=== PATIENT | male | born 1960 | race Caucasian/White ===

== ENCOUNTER 2017-03-14 19:30 | Emergency (ER) | payer OTHER ==
[~2017-03-14] VITALS: Ht 154.9 cm; Wt 81.6 kg
[~2017-03-14 19:30] MED LIST: ACIPHEX20 MG PO; ALAVERT10 M1 PO; ALBUTEROL0.09 MG/A2 INH; ASPIRIN325 MG PO; AUGMENTIN 875-875 MG PO; AUGMENTIN 875875 MG PO; BACTRIM DS 8001 TA1 PO; CEFTIN500 MG PO; CHERATUSSIN AC240 ML PO; CLARITIN-D 12HR1 T12 PO; CLARITIN10 MG PO; CYCLOBENZAPRINE10 MG PO; FLONASE 0.05% 121 EA NAS; HYDROCODONE BIT1 T11 PO; IMDUR60 MG PO; KEFLEX500 MG PO; LEVOFLOXACIN500 MG PO; LOPRESSOR25 MG PO; MEDROL DOSEPAK4 MG PO; MOTRIN800 MG PO; NORCO 5-325 TA1 EACH PO; PREDNICOT10 MG PO; PREDNICOT20 MG PO; PREDNISONE10 MG PO; PREDNISONE20 MG PO; PREDNISONE50 MG PO; PRILOSEC20 M1 PO; PROVENTIL0.09 MG/A1 INH; ROBITUSSIN AC 10 MG/ PO; ROBITUSSIN AC 110 ML PO; SIMVASTATIN20 MG PO; SYNTHROID; Synthroid,Levo50 MCG PO; TESSALON PERLE200 MG PO; VENTOLIN H0.09 MG/AC INH; VIBRAMYCIN100 MG PO; VITAMIN D5000 I2 PO; ZITHROMAX Z PA250 MG PO; ZITHROMAX250 MG PO
[2017-03-14 19:42] VITALS: BP 152/92
[2017-03-14 20:12] LABS: BASO # 0.1 10*3/uL (0.0-0.1); BASO % 0.4 % (0.0-1.0); EOS # 0.2 10*3/uL (0.0-0.4); EOS % 1.5 % (1.0-4.0); HEMATOCRIT 40.1 % (42.0-52.0); HEMOGLOBIN 13.5 g/dl (14.0-18.0); IG # 0.1 10*3/uL (0.0-0.1); LYMPH # 3.9 10*3/uL (1.3-4.4); LYMPH % 30.8 % (27.0-41.0); MEAN CELL VOLUME 88.1 fl (80.0-94.0); MEAN CORPUSCULAR HGB 29.7 pg (27.0-31.0); MEAN CORPUSCULAR HGB CONC 33.7 g/dl (33.0-37.0); MONO # 0.6 10*3/uL (0.1-1.0); MONO % 4.9 % (3.0-9.0); NEUT # 7.7 10*3/uL (2.3-7.9); NEUT % 61.8 % (47.0-73.0); PLATELET COUNT AUTOMATED 269 10*3/uL (130-400); RED BLOOD COUNT 4.55 10*6/uL (4.50-5.90); RED CELL DISTRI WIDTH 13.7 % (0-14.5); WHITE BLOOD COUNT 12.5 10*3/uL (4.8-10.8)
[2017-03-14 20:31] LABS: BUN 9 mg/dl (7-24); CARBON DIOXIDE 29 mmol/L (21-32); CHLORIDE 100 mmol/L (98-107); EST GLOM FILT AFRICAN AMERICAN > 60 ml/min; GLUCOSE 118 mg/dL (65-99); POTASSIUM 3.7 mmol/L (3.5-5.1); SODIUM 138 mmol/L (136-145)
[2017-03-14 20:34] LABS: TROPONIN I < 0.015 ng/ml (<0.045)
[2017-03-14] MEDS ORDERED: ROBITUSSIN AC 110 ML PO (21:00)
[2017-03-14] MEDS ORDERED: AUGMENTIN 500500 M1 PO (21:00)
== END 2017-03-14 21:22 | disposition home or self-care (01) ==
LOC: ED 19:30
PROVIDERS: Emergency Medicine Emergency Medical Services
DX: J20.9 Acute bronchitis, unspecified (principal); G89.29 Other chronic pain; M54.5 Low back pain; F17.200 Nicotine dependence, unspecified, uncomplicated; Z98.890 Other specified postprocedural states; Z79.899 Other long term (current) drug therapy; Z79.82 Long term (current) use of aspirin; Z88.4 Allergy status to anesthetic agent

== ENCOUNTER 2017-04-06 18:10 | Emergency (ER) | payer OTHER ==
[~2017-04-06] VITALS: Ht 154.9 cm; Wt 82.6 kg
[~2017-04-06 18:10] MED LIST changes: +AUGMENTIN 500500 M1 PO
[2017-04-06 18:17] VITALS: BP 154/92
[2017-04-06] MEDS ORDERED: ZYRTEC10 MG PO (19:26)
== END 2017-04-06 19:30 | disposition home or self-care (01) ==
LOC: ED 18:10
DX: B30.9 Viral conjunctivitis, unspecified (principal); F17.200 Nicotine dependence, unspecified, uncomplicated; Z88.4 Allergy status to anesthetic agent; Z79.82 Long term (current) use of aspirin; Z79.899 Other long term (current) drug therapy

== ENCOUNTER 2017-04-30 19:22 | Emergency (ER) | payer OTHER ==
[~2017-04-30] VITALS: Ht 154.9 cm; Wt 81.6 kg
[~2017-04-30 19:22] MED LIST changes: +ZYRTEC10 MG PO
[2017-04-30 20:28] LABS: BASO # 0.1 10*3/uL (0.0-0.1); BASO % 0.3 % (0.0-1.0); EOS # 0.1 10*3/uL (0.0-0.4); EOS % 0.5 % (1.0-4.0); HEMATOCRIT 39.7 % (42.0-52.0); HEMOGLOBIN 13.4 g/dl (14.0-18.0); LYMPH # 3.5 10*3/uL (1.3-4.4); LYMPH % 19.9 % (27.0-41.0); MEAN CELL VOLUME 87.8 fl (80.0-94.0); MEAN CORPUSCULAR HGB 29.6 pg (27.0-31.0); MEAN CORPUSCULAR HGB CONC 33.8 g/dl (33.0-37.0); MEAN PLATELET VOLUME 9.1 fl (9.6-12.3); MONO # 0.9 10*3/uL (0.1-1.0); MONO % 4.9 % (3.0-9.0); NEUT % 73.7 % (47.0-73.0); PLATELET COUNT AUTOMATED 308 10*3/uL (130-400); RED BLOOD COUNT 4.52 10*6/uL (4.50-5.90); RED CELL DISTRI WIDTH 14.2 % (0-14.5); WHITE BLOOD COUNT 17.6 10*3/uL (4.8-10.8)
[2017-04-30 20:45] LABS: ALBUMIN 3.7 gm/dl (3.1-4.5); ALKALINE PHOSPHATASE 177 U/L (45-117); BUN 9 mg/dl (7-24); CHLORIDE 102 mmol/L (98-107); CREATININE 0.97 mg/dL (0.70-1.30); POTASSIUM 3.6 mmol/L (3.5-5.1); SGOT/AST 27 IU/L (3-35); SGPT/ALT 38 U/L (12-78); SODIUM 136 mmol/L (136-145); TOTAL PROTEIN 7.7 gm/dL (6.4-8.2)
[2017-04-30 20:48] LABS: TROPONIN I < 0.015 ng/ml (<0.045)
[2017-04-30 21:36] VITALS: BP 160/93
[2017-04-30] MEDS ORDERED: MEDROL DOSEPAK4 MG PO (22:20)
[2017-04-30] MEDS ORDERED: LEVAQUIN750 M1 PO (22:20)
== END 2017-04-30 22:52 | disposition home or self-care (01) ==
LOC: ED 19:22
PROVIDERS: Emergency Medicine
DX: J44.1 Chronic obstructive pulmonary disease with (acute) exacerbation (principal); R10.9 Unspecified abdominal pain; R11.0 Nausea; R19.7 Diarrhea, unspecified; I10 Essential (primary) hypertension; I25.2 Old myocardial infarction; F17.200 Nicotine dependence, unspecified, uncomplicated; Z88.6 Allergy status to analgesic agent; Z79.899 Other long term (current) drug therapy; Z79.82 Long term (current) use of aspirin

== ENCOUNTER 2017-06-23 18:57 | Emergency (ER) | payer OTHER ==
[~2017-06-23] VITALS: Ht 154.9 cm; Wt 81.6 kg
[~2017-06-23 18:57] MED LIST changes: +LEVAQUIN750 M1 PO
[2017-06-23 19:03] VITALS: BP 151/85
[2017-06-23] MEDS ORDERED: VIBRAMYCIN100 MG PO (19:20)
== END 2017-06-23 19:27 | disposition home or self-care (01) ==
LOC: ED 18:57
DX: R09.81 Nasal congestion (principal); R05 Cough; J02.9 Acute pharyngitis, unspecified; Z88.4 Allergy status to anesthetic agent; Z79.82 Long term (current) use of aspirin; Z79.899 Other long term (current) drug therapy

== ENCOUNTER 2017-09-08 15:17 | Inpatient (IN) | payer OTHER ==
[~2017-09-08] VITALS: Ht 155 cm; Wt 79.0 kg
--- NOTE | ~2017-09-08 | WRIGHTHP ---
[place], [place] PATIENT HISTORY AND PHYSICAL EXAM NAME: VERNON VILLALOBOS [facility] #: [id number] UNIT #: [id number] ROOM: 402 DOCTOR: ALBERT GATES MD BIRTHDATE: [birth year] DOS: 09/08/2017 HISTORY OF PRESENT ILLNESS: The patient is 56 years old. 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 So, he decided to come into the Emergency Room. He did not have any abdominal pain, nausea, any emesis. He also had some minimal epigastric pain. When he was evaluated in the ER, he was found to have white cell count which is elevated at 17,000, normal lactic acid with lipase and amylase also being elevated. So, he was admitted with diagnosis of possibility of acute pancreatitis. The patient does not have any abdominal pain this morning. Does not have any chest pains, nausea, emesis, does not have any fever or chills. The patient feels good and he is hungry and wants to have some food. PAST MEDICAL HISTORY: Significant for: 1. Hypertension. 2. Coronary artery disease with history of stent placement with a negative stress test in 2017 as an outpatient. 3. Hypothyroidism. 4. Mixed hyperlipidemia. MEDICATIONS: Pravachol, omeprazole, Imdur, aspirin, levothyroxine and metoprolol. SOCIAL HISTORY: Nonsmoker, does not use any alcohol. PHYSICAL EXAMINATION: GENERAL: He is awake and alert and oriented. VITAL SIGNS: Graphic trend shows a pressure of 150/84, pulse of 70, respirations 20, temperature 97.2. LUNGS: Diminished breath sounds. No wheezes, rales, rhonchi heard. HEART: Regular. ABDOMEN: Obese, soft, nontender. EXTREMITIES: Without any edema. ASSESSMENT AND PLAN: 1. Acute pancreatitis. The patient is clinically improving. Labs are showing some improvement. We will start him on a clear liquid diet this morning and will repeat the labs again in the morning. If it looks good, plan is to discharge him to home. CT of the abdomen does not show any evidence of pancreatic changes. 2. Elevated white cell count of unknown etiology, could be from the pancreatitis. The patient's white cell count is coming down with the fluids. 3. Chest pain, ruled out for myocardial infarction. The patient had a stress test last year, which was negative. [place], [place] PATIENT HISTORY AND PHYSICAL EXAM NAME: VERNON VILLALOBOS UNIT #: [id number] ROOM: [facility] DOCTOR: ALBERT GATES MD BIRTHDATE: [birth year] ALBERT GATES MD CM:HISPHYS:PATIENT HISTORY AND PHYSICAL EXAMINATION ALBERT GATES MD 09/09/17 0955 interface
[2017-09-08] MEDS ORDERED: ASMANEX220 MC1 INH (15:31)
[2017-09-08] MEDS ORDERED: VENTOLIN 02.5 MG/3 M INH (15:31)
[2017-09-08] MEDS ORDERED: VITAMIN D32000 UNIT PO (15:31)
[2017-09-08 15:32] VITALS: BP 142/94
[2017-09-08 15:41] LABS: BASO # 0.1 10*3/uL (0.0-0.1); BASO % 0.3 % (0.0-1.0); EOS # 0.2 10*3/uL (0.0-0.4); EOS % 1.3 % (1.0-4.0); HEMOGLOBIN 13.5 g/dl (14.0-18.0); LYMPH # 2.7 10*3/uL (1.3-4.4); LYMPH % 14.9 % (27.0-41.0); MEAN CELL VOLUME 85.8 fl (80.0-94.0); MEAN CORPUSCULAR HGB CONC 33.8 g/dl (33.0-37.0); MEAN PLATELET VOLUME 9.1 fl (9.6-12.3); MONO # 0.9 10*3/uL (0.1-1.0); MONO % 4.8 % (3.0-9.0); NEUT % 78.3 % (47.0-73.0); PLATELET COUNT AUTOMATED 333 10*3/uL (130-400); RED BLOOD COUNT 4.66 10*6/uL (4.50-5.90); RED CELL DISTRI WIDTH 13.9 % (0-14.5); WHITE BLOOD COUNT 17.9 10*3/uL (4.8-10.8)
[2017-09-08 15:50] LABS: ACT PARTIAL THROMBO TIME 26.7 SECONDS (20.8-31.5); INTERNATIONAL NORM RATIO 0.9 (2.0-3.5)
[2017-09-08 15:57] LABS: ALBUMIN 3.9 gm/dl (3.1-4.5); ALKALINE PHOSPHATASE 189 U/L (45-117); BUN 10 mg/dl (7-24); CHLORIDE 102 mmol/L (98-107); CREATININE 0.88 mg/dL (0.70-1.30); LIPASE 1351 U/L (73-393); POTASSIUM 3.6 mmol/L (3.5-5.1); SGOT/AST 45 IU/L (3-35); SGPT/ALT 75 U/L (12-78); SODIUM 137 mmol/L (136-145); TOTAL PROTEIN 7.6 gm/dL (6.4-8.2); TROPONIN I < 0.015 ng/ml (<0.045)
[2017-09-08] MEDS ORDERED: PRAVACHOL40 MG PO (17:32)
[2017-09-08 17:47] VITALS: BP 142/86
[2017-09-08 20:00] VITALS: BP 124/85
[2017-09-09] VITALS: BP 140/85
[2017-09-09 06:00] LABS: BASO % 0.3 % (0.0-1.0); EOS # 0.2 10*3/uL (0.0-0.4); EOS % 1.9 % (1.0-4.0); HEMATOCRIT 39.6 % (42.0-52.0); HEMOGLOBIN 13.3 g/dl (14.0-18.0); LYMPH # 2.7 10*3/uL (1.3-4.4); LYMPH % 21.4 % (27.0-41.0); MEAN CORPUSCULAR HGB 29.6 pg (27.0-31.0); MEAN CORPUSCULAR HGB CONC 33.6 g/dl (33.0-37.0); MEAN PLATELET VOLUME 9.5 fl (9.6-12.3); MONO # 0.7 10*3/uL (0.1-1.0); MONO % 5.8 % (3.0-9.0); NEUT # 8.7 10*3/uL (2.3-7.9); NEUT % 70.2 % (47.0-73.0); PLATELET COUNT AUTOMATED 301 10*3/uL (130-400); RED CELL DISTRI WIDTH 14.1 % (0-14.5); WHITE BLOOD COUNT 12.4 10*3/uL (4.8-10.8)
[2017-09-09 06:19] LABS: ALBUMIN 3.6 gm/dl (3.1-4.5); BILIRUBIN, DIRECT 0.1 mg/dL (0.0-0.2)
[2017-09-09 06:20] LABS: TOTAL PROTEIN 7.1 gm/dL (6.4-8.2)
[2017-09-09 08:00] VITALS: BP 150/84
[2017-09-09 12:00] VITALS: BP 123/70
[2017-09-09 16:00] VITALS: BP 127/72
== END 2017-09-09 18:22 | disposition left against medical advice (07) | DRG 439 ==
LOC: ED 15:17 → EDHOLD 16:53 → 4E 16:53
PROVIDERS: Emergency Medicine; Internal Medicine
DX: K85.90 Acute pancreatitis without necrosis or infection, unspecified (principal); R65.10 Systemic inflammatory response syndrome (SIRS) of non-infectious origin without acute organ dysfunction; K76.0 Fatty (change of) liver, not elsewhere classified; J45.909 Unspecified asthma, uncomplicated; E66.9 Obesity, unspecified; E03.9 Hypothyroidism, unspecified; I10 Essential (primary) hypertension; E78.2 Mixed hyperlipidemia; K21.9 Gastro-esophageal reflux disease without esophagitis; I25.10 Atherosclerotic heart disease of native coronary artery without angina pectoris; J44.9 Chronic obstructive pulmonary disease, unspecified; E55.9 Vitamin D deficiency, unspecified; Z96.1 Presence of intraocular lens; Z53.21 Procedure and treatment not carried out due to patient leaving prior to being seen by health care provider; M54.32 Sciatica, left side; Z82.49 Family history of ischemic heart disease and other diseases of the circulatory system; Z80.1 Family history of malignant neoplasm of trachea, bronchus and lung; Z79.2 Long term (current) use of antibiotics; Z79.899 Other long term (current) drug therapy; Z87.891 Personal history of nicotine dependence; Z88.4 Allergy status to anesthetic agent; Z95.5 Presence of coronary angioplasty implant and graft; Z98.49 Cataract extraction status, unspecified eye; Z68.32 Body mass index [BMI] 32.0-32.9, adult

== ENCOUNTER 2017-09-17 18:37 | Emergency (ER) | payer OTHER ==
[~2017-09-17] VITALS: Ht 154.9 cm; Wt 78.5 kg
[~2017-09-17 18:37] MED LIST changes: +ASMANEX220 MC1 INH; +PRAVACHOL40 MG PO; +VENTOLIN 02.5 MG/3 M INH; +VITAMIN D32000 UNIT PO
[2017-09-17 18:46] VITALS: BP 156/82
[2017-09-17 19:15] LABS: BASO % 0.4 % (0.0-1.0); EOS # 0.1 10*3/uL (0.0-0.4); EOS % 1.3 % (1.0-4.0); HEMOGLOBIN 13.5 g/dl (14.0-18.0); LYMPH # 1.2 10*3/uL (1.3-4.4); LYMPH % 11.7 % (27.0-41.0); MEAN CORPUSCULAR HGB CONC 33.8 g/dl (33.0-37.0); MONO # 0.7 10*3/uL (0.1-1.0); MONO % 6.5 % (3.0-9.0); NEUT # 8.3 10*3/uL (2.3-7.9); NEUT % 79.8 % (47.0-73.0); PLATELET COUNT AUTOMATED 291 10*3/uL (130-400); RED BLOOD COUNT 4.65 10*6/uL (4.50-5.90); RED CELL DISTRI WIDTH 13.6 % (0-14.5); WHITE BLOOD COUNT 10.3 10*3/uL (4.8-10.8)
[2017-09-17 19:30] LABS: ALBUMIN 4.5 gm/dl (3.1-4.5); ALKALINE PHOSPHATASE 149 U/L (45-117); BUN 7 mg/dl (7-24); CHLORIDE 99 mmol/L (98-107); CREATININE 0.84 mg/dL (0.70-1.30); POTASSIUM 3.7 mmol/L (3.5-5.1); SGOT/AST 25 IU/L (3-35); SGPT/ALT 43 U/L (12-78); SODIUM 137 mmol/L (136-145); TOTAL PROTEIN 8.4 gm/dL (6.4-8.2)
[2017-09-17] MEDS ORDERED: ZITHROMAX250 MG PO (21:06)
[2017-09-17 21:10] LABS: INTERNATIONAL NORM RATIO 0.9 (2.0-3.5)
[2017-09-17 21:12] LABS: TROPONIN I < 0.015 ng/ml (<0.045)
== END 2017-09-17 21:38 | disposition home or self-care (01) ==
LOC: ED 18:37
PROVIDERS: Physician Assistant
DX: J06.9 Acute upper respiratory infection, unspecified (principal); J81.1 Chronic pulmonary edema; R06.00 Dyspnea, unspecified; F10.10 Alcohol abuse, uncomplicated; Z88.8 Allergy status to other drugs, medicaments and biological substances; Z79.899 Other long term (current) drug therapy; Z79.82 Long term (current) use of aspirin

== ENCOUNTER 2017-12-05 17:55 | Emergency (ER) | payer OTHER ==
[~2017-12-05] VITALS: Wt 79.4 kg
[2017-12-05 18:23] LABS: BASO # 0.1 10*3/uL (0.0-0.1); BASO % 0.4 % (0.0-1.0); EOS # 0.1 10*3/uL (0.0-0.4); EOS % 0.6 % (1.0-4.0); HEMATOCRIT 39.5 % (42.0-52.0); LYMPH % 25.2 % (27.0-41.0); MEAN CELL VOLUME 85.7 fl (80.0-94.0); MEAN CORPUSCULAR HGB 28.2 pg (27.0-31.0); MEAN CORPUSCULAR HGB CONC 32.9 g/dl (33.0-37.0); MEAN PLATELET VOLUME 9.2 fl (9.6-12.3); MONO # 0.9 10*3/uL (0.1-1.0); MONO % 5.5 % (3.0-9.0); NEUT # 10.8 10*3/uL (2.3-7.9); NEUT % 67.8 % (47.0-73.0); PLATELET COUNT AUTOMATED 318 10*3/uL (130-400); RED BLOOD COUNT 4.61 10*6/uL (4.50-5.90); RED CELL DISTRI WIDTH 15.7 % (0-14.5)
[2017-12-05 18:26] VITALS: BP 140/80
[2017-12-05 18:38] LABS: BUN 12 mg/dl (7-24); CHLORIDE 102 mmol/L (98-107); CREATININE 0.83 mg/dL (0.70-1.30); POTASSIUM 3.6 mmol/L (3.5-5.1); SODIUM 137 mmol/L (136-145)
[2017-12-05 18:39] LABS: ALBUMIN 3.8 gm/dl (3.1-4.5); ALKALINE PHOSPHATASE 160 U/L (45-117); SGOT/AST 29 IU/L (3-35); SGPT/ALT 74 U/L (12-78); TOTAL PROTEIN 7.4 gm/dL (6.4-8.2)
[2017-12-05] MEDS ORDERED: LOTRISONE CREAM15 GM T (19:01)
[2017-12-05] MEDS ORDERED: FLUCONAZOLE100 MG PO (19:01)
== END 2017-12-05 19:30 | disposition home or self-care (01) ==
LOC: ED 17:55
PROVIDERS: Emergency Medicine
DX: B35.6 Tinea cruris (principal); J44.9 Chronic obstructive pulmonary disease, unspecified; I25.10 Atherosclerotic heart disease of native coronary artery without angina pectoris; K21.9 Gastro-esophageal reflux disease without esophagitis; E03.9 Hypothyroidism, unspecified; E66.9 Obesity, unspecified; I10 Essential (primary) hypertension; G89.29 Other chronic pain; M54.5 Low back pain; Z68.34 Body mass index [BMI] 34.0-34.9, adult; Z95.5 Presence of coronary angioplasty implant and graft; Z87.891 Personal history of nicotine dependence; Z79.82 Long term (current) use of aspirin; Z88.4 Allergy status to anesthetic agent; Z79.899 Other long term (current) drug therapy

== ENCOUNTER 2018-01-13 22:55 | Emergency (ER) | payer OTHER ==
[~2018-01-13] VITALS: Ht 154.9 cm; Wt 81.6 kg
[2018-01-13 22:55] VITALS: BP 149/97
[~2018-01-13 22:55] MED LIST changes: +FLUCONAZOLE100 MG PO; +LOTRISONE CREAM15 GM T
[2018-01-14] MEDS ORDERED: MEDROL DOSEPAK4 MG PO (00:32)
[2018-01-14] MEDS ORDERED: AUGMENTIN 875-875 MG PO (00:32)
== END 2018-01-14 01:03 | disposition home or self-care (01) ==
LOC: ED 22:55
DX: J40 Bronchitis, not specified as acute or chronic (principal); G89.29 Other chronic pain; J44.9 Chronic obstructive pulmonary disease, unspecified; I25.10 Atherosclerotic heart disease of native coronary artery without angina pectoris; I10 Essential (primary) hypertension; K21.9 Gastro-esophageal reflux disease without esophagitis; E03.9 Hypothyroidism, unspecified; E78.2 Mixed hyperlipidemia; E66.9 Obesity, unspecified; Z68.34 Body mass index [BMI] 34.0-34.9, adult; Z95.5 Presence of coronary angioplasty implant and graft; Z87.891 Personal history of nicotine dependence; Z98.890 Other specified postprocedural states; Z79.82 Long term (current) use of aspirin; Z79.899 Other long term (current) drug therapy; Z88.4 Allergy status to anesthetic agent

== ENCOUNTER 2018-01-30 12:55 | Emergency (ER) | payer OTHER ==
[~2018-01-30] VITALS: Ht 154.9 cm; Wt 81.6 kg
[2018-01-30 12:57] VITALS: BP 154/91
[2018-01-30] MEDS ORDERED: PREDNISONE20 M1 PO ×2 (13:21→13:24)
== END 2018-01-30 13:48 | disposition home or self-care (01) ==
LOC: ED 12:55
DX: L25.9 Unspecified contact dermatitis, unspecified cause (principal); Z87.891 Personal history of nicotine dependence; Z95.5 Presence of coronary angioplasty implant and graft; Z79.82 Long term (current) use of aspirin; Z79.899 Other long term (current) drug therapy; Z88.4 Allergy status to anesthetic agent

== ENCOUNTER 2018-02-09 11:15 | Inpatient (IN) | payer OTHER ==
[~2018-02-09] VITALS: Ht 157.4 cm; Wt 82.4 kg
[2018-02-09] VITALS (7 sets, daily range): BP systolic 134–153; BP diastolic 80–86
--- NOTE | ~2018-02-09 | EKG ---
[place], [place] ELECTROCARDIOGRAM REPORT NAME: VERNON VILLALOBOS UNIT #: [id number] ROOM: 415 DOCTOR: YESENIA DRAFT REPORT BIRTHDATE: [address] 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
--- NOTE | ~2018-02-09 | WRIGHTHP ---
[place], [place] PATIENT HISTORY AND PHYSICAL EXAM NAME: VERNON VILLALOBOS [facility] #: [id number] UNIT #: [id number] ROOM: 415 DOCTOR: JASSON LANDIS MD BIRTHDATE: [birth year] DOS: 02/09/2018 HISTORY OF PRESENT ILLNESS: The patient is a 57-year-old gentleman with previous history of: 1. Coronary artery disease of the [place] vessels and stent placements in the past. 2. Gastroesophageal reflux disease and esophagitis. 3. History of asthmatoid wheezing. 4. Hypothyroidism. 5. Benign essential hypertension. 6. Mixed hyperlipidemia. The patient presented to the Emergency Department with several days of complaints of increasing shortness of breath, wheezing, and cough. The patient was recommended for admission for treatment. After admission, the patient being started on corticosteroids, nebulizer treatments and oxygen. The patient is starting to feel better. REVIEW OF SYSTEMS: RESPIRATORY: Increased shortness of breath and wheezing. GASTROINTESTINAL: No nausea, vomiting, diarrhea, constipation. CARDIOVASCULAR: No chest pains or palpitations. FAMILY HISTORY: Noncontributory. SOCIAL HISTORY: Nicotine smoke dependence. Denies any alcohol or drug abuse. FAMILY HISTORY: Noncontributory. HOME MEDICATIONS: DuoNeb, simvastatin, omeprazole. ALLERGIES: Known allergies to NOVOCAIN. PHYSICAL EXAMINATION: GENERAL: Alert, oriented x 3, obese. VITAL SIGNS: Blood pressure 147/86, heart rate 82 beats per minute, breathing 20 times per minute, temperature 98 degrees Fahrenheit. HEENT AND NECK: Extraocular movements are intact. Sclerae are anicteric. Oral mucosa is moist and clean. No obvious facial weakness. Neck is supple without any lymphadenopathy. No thyromegaly. No JVD. No carotid arterial bruits. LUNGS: On lung auscultation, some expiratory wheezing which is scattered. CARDIOVASCULAR SYSTEM: Heart rate is regular in rate and rhythm. S1 and S2 normally audible. No significant murmur or any other abnormal cardiac sounds. ABDOMEN: Soft, nontender. No obvious organomegaly. Bowel sounds are present. No obvious herniation. EXTREMITIES: Without significant cyanosis or edema. Warm to touch. CENTRAL NERVOUS SYSTEM: Alert and oriented x 3. Cranial nerves II-XII are intact. Speech is normal. The patient is able to move all extremities. Normal muscle strength. Deep tendon reflexes are equal on both sides. Plantars were downgoing. [place], [place] PATIENT HISTORY AND PHYSICAL EXAM NAME: VERNON VILLALOBOS [facility] #: [id number] UNIT #: [id number] ROOM: [facility] DOCTOR: JASSON LANDIS MD BIRTHDATE: [birth year] LABORATORY DATA: Chest x-ray without acute abnormality. Normal serum electrolytes. White cell count of 21,000. Lactic acid level was normal. 1. Acute exacerbation of chronic obstructive pulmonary disease with acute bronchitis, wheezing and leukocytosis, to be treated with antibiotics, corticosteroids and oxygen as needed. 2. Coronary artery disease of the [place] vessels without chest pains presently. 3. Mixed hyperlipidemia. The patient continued on treatment. 4. Hypothyroidism, treated with thyroid supplements. 5. Benign essential hypertension, treated and controlled. 6. Gastroesophageal reflux disease and esophagitis, asymptomatic with omeprazole. JASSON LANDIS MD CM:HISPHYS:PATIENT HISTORY AND PHYSICAL EXAMINATION 39 22 JASSON LANDIS MD 02/09/182120 interface
--- NOTE | ~2018-02-09 | DS ---
[place], [place] DISCHARGE SUMMARY NAME: VERNON VILLALOBOS [facility] #: [id number] UNIT #: [id number] ROOM: 415 DOCTOR: JASSON LANDIS MD BIRTHDATE: [birth year] DOS: 02/10/2018 DISCHARGE DIAGNOSES: 1. Acute exacerbation of chronic obstructive pulmonary disease. 2. Corticosteroid-induced leukocytosis. 3. Mixed hyperlipidemia. 4. Hypothyroidism. 5. Benign essential hypertension. 6. Gastroesophageal reflux disease and esophagitis. 7. Mixed hyperlipidemia. 8. History of coronary artery disease of the [place] vessels and stent placements in the past. HOSPITAL COURSE: The patient presented to the Emergency Department with failed outpatient treatment for acute exacerbation of COPD, shortness of breath, wheezing and cough. The patient was admitted and treated with corticosteroids, oxygen, antibiotic, nebulizer treatments and his breathing is improved and he is insisting on going home. The patient has leukocytosis from using corticosteroids as an outpatient and also now given IV Solu-Medrol in the hospital. The patient is completely asymptomatic. He has no diarrhea. Breathing is improved and she was walked in the hallways without oxygen and his pulse ox remained good. The patient will be discharged to home on his tapering down dose of prednisone, which he was already taking at home and he was given Augmentin and bronchodilators and he will be seen in the office next week on Wednesday or Wednesday. 1. Mixed hyperlipidemia, for which the patient is followed on a low fat diet and he takes simvastatin. 2. Hypothyroidism, treated with levothyroxine. 3. Benign essential hypertension, treated and controlled. He remains on metoprolol. 4. Gastroesophageal reflux disease and esophagitis, treated with omeprazole. 5. History of coronary artery disease of the [place] vessels, treated with aspirin and Imdur. The patient is chest pain free. Normal serum electrolytes. Blood sugar elevated to 310 from use of corticosteroids. The patient has corticosteroid-induced hyperglycemia. White cell count elevated to 25,000 from use of corticosteroids. DISCHARGE MANAGEMENT: Augmentin 875 mg twice a day for a week, simvastatin 20 mg daily, Medrol Dosepak, omeprazole 20 mg a day, aspirin 325 mg a day, Imdur 60 mg a day, loratadine 10 mg a day, metoprolol 25 mg b.i.d., levothyroxine 50 mcg daily. FOLLOWUP: Follow up at the office on Wednesday with me. [place], [place] DISCHARGE SUMMARY NAME: VERNON VILLALOBOS UNIT #: [id number] ROOM: 415 DOCTOR: JASSON LANDIS MD BIRTHDATE: [birth year] JASSON LANDIS MD CM:ROGER 170 [id number] JSASON LANDIS MD 02/10/18 1728 interface
[~2018-02-09 11:15] MED LIST changes: +PREDNISONE20 M1 PO
[2018-02-09 11:54] LABS: BASO % 0.1 % (0.0-1.0); EOS # 0.1 10*3/uL (0.0-0.4); EOS % 0.5 % (1.0-4.0); HEMATOCRIT 42.9 % (42.0-52.0); LYMPH # 3.7 10*3/uL (1.3-4.4); LYMPH % 17.6 % (27.0-41.0); MEAN CELL VOLUME 88.3 fl (80.0-94.0); MEAN CORPUSCULAR HGB 28.8 pg (27.0-31.0); MEAN CORPUSCULAR HGB CONC 32.6 g/dl (33.0-37.0); MEAN PLATELET VOLUME 8.9 fl (9.6-12.3); MONO % 4.7 % (3.0-9.0); NEUT % 76.2 % (47.0-73.0); PLATELET COUNT AUTOMATED 265 10*3/uL (130-400); RED BLOOD COUNT 4.86 10*6/uL (4.50-5.90); RED CELL DISTRI WIDTH 15.1 % (0-14.5)
[2018-02-09 12:03] LABS: ACT PARTIAL THROMBO TIME 22.9 SECONDS (20.8-31.5); INTERNATIONAL NORM RATIO 0.9 (2.0-3.5)
[2018-02-09 12:09] LABS: ALBUMIN 3.9 gm/dl (3.1-4.5); ALKALINE PHOSPHATASE 108 U/L (45-117); BUN 12 mg/dl (7-24); CHLORIDE 98 mmol/L (98-107); LIPASE 163 U/L (73-393); SGOT/AST 17 IU/L (3-35); SGPT/ALT 35 U/L (12-78); SODIUM 135 mmol/L (136-145); TOTAL PROTEIN 7.5 gm/dL (6.4-8.2)
[2018-02-09 12:27] LABS: TROPONIN I < 0.015 ng/ml (<0.045)
[2018-02-09] MEDS ORDERED: FOLIC ACID0.8 M1 PO (14:02)
[2018-02-09] MEDS ORDERED: CLARITIN10 MG PO (14:05)
[2018-02-09] MEDS ORDERED: ASMANEX220 MC1 INH (14:13)
[2018-02-10] VITALS: BP 154/87
[2018-02-10 06:02] LABS: BUN 11 mg/dl (7-24); CHLORIDE 98 mmol/L (98-107); CREATININE 0.99 mg/dL (0.70-1.30); POTASSIUM 3.7 mmol/L (3.5-5.1); SODIUM 133 mmol/L (136-145)
[2018-02-10 06:06] LABS: HEMATOCRIT 41.1 % (42.0-52.0); HEMOGLOBIN 13.4 g/dl (14.0-18.0); MEAN CELL VOLUME 88.6 fl (80.0-94.0); MEAN CORPUSCULAR HGB 28.9 pg (27.0-31.0); MEAN CORPUSCULAR HGB CONC 32.6 g/dl (33.0-37.0); MEAN PLATELET VOLUME 9.7 fl (9.6-12.3); PLATELET COUNT AUTOMATED 278 10*3/uL (130-400); RED BLOOD COUNT 4.64 10*6/uL (4.50-5.90); RED CELL DISTRI WIDTH 15.1 % (0-14.5); WHITE BLOOD COUNT 25.3 10*3/uL (4.8-10.8)
[2018-02-10 07:19] LABS: TOTAL CELLS COUNTED 100 #CELLS
[2018-02-10 07:20] LABS: PLATELET SUFFICIENCY NORMAL (NORMAL)
[2018-02-10 08:00] VITALS: BP 146/76
[2018-02-10 16:00] VITALS: BP 135/88
[2018-02-10] MEDS ORDERED: AUGMENTIN 875-875 MG PO (16:42)
== END 2018-02-10 17:25 | disposition home or self-care (01) | DRG 191 ==
LOC: ED 11:15 → EDHOLD 13:18 → 4E 13:18
PROVIDERS: Emergency Medicine; Internal Medicine
DX: J44.0 Chronic obstructive pulmonary disease with (acute) lower respiratory infection (principal); E87.1 Hypo-osmolality and hyponatremia; J44.1 Chronic obstructive pulmonary disease with (acute) exacerbation; D72.829 Elevated white blood cell count, unspecified; J20.9 Acute bronchitis, unspecified; E03.9 Hypothyroidism, unspecified; E78.2 Mixed hyperlipidemia; I25.10 Atherosclerotic heart disease of native coronary artery without angina pectoris; G89.29 Other chronic pain; M54.5 Low back pain; M54.32 Sciatica, left side; E66.9 Obesity, unspecified; E55.9 Vitamin D deficiency, unspecified; K21.0 Gastro-esophageal reflux disease with esophagitis; T38.0X5A Adverse effect of glucocorticoids and synthetic analogues, initial encounter; R73.9 Hyperglycemia, unspecified; Z96.1 Presence of intraocular lens; I10 Essential (primary) hypertension; Z88.5 Allergy status to narcotic agent; Z79.82 Long term (current) use of aspirin; Z95.5 Presence of coronary angioplasty implant and graft; Z98.41 Cataract extraction status, right eye; Z98.42 Cataract extraction status, left eye; Z87.891 Personal history of nicotine dependence; Z83.3 Family history of diabetes mellitus; Z83.6 Family history of other diseases of the respiratory system; Z80.1 Family history of malignant neoplasm of trachea, bronchus and lung; Z88.1 Allergy status to other antibiotic agents; Y92.89 Other specified places as the place of occurrence of the external cause; Z68.33 Body mass index [BMI] 33.0-33.9, adult

== ENCOUNTER 2018-05-14 08:01 | Inpatient (IN) | payer OTHER ==
[~2018-05-14] VITALS: Ht 167.6 cm; Wt 86.4 kg
--- NOTE | ~2018-05-14 | WRIGHTHP ---
[place], [place] PATIENT HISTORY AND PHYSICAL EXAM NAME: VERNON VILLALOBOS [facility] #: [id number] UNIT #: [id number] ROOM: 403 DOCTOR: ALBERT GATES MD BIRTHDATE: [birth year] DOS: SUBJECTIVE: The patient is 57, very well known to us, comes in with complaints of difficulty breathing. He states that he has had a cough and shortness of breath and right-sided chest discomfort for about a week now. He denies having any fever, any chills, any left-sided chest pain, most of the pain is when he coughs or takes a deep breath. Cough is productive of copious amounts of sputum mostly white in color. PAST MEDICAL HISTORY: 1. Significant for last hospitalization in January 2018 with acute exacerbation of chronic obstructive pulmonary disease. 2. Hypothyroidism. 3. Benign hypertension. 4. Mixed hyperlipidemia. 5. History of coronary artery disease with stent placement. MEDICATIONS: That he is on are Ventolin q.i.d., aspirin 325 daily, vitamin D 5000 units daily, folic acid 0.8 daily, isosorbide 60 daily, levothyroxine 50 mcg daily, loratadine 10 daily, metoprolol 25 b.i.d., omeprazole 40 daily, Pravachol 40 daily. SOCIAL HISTORY: Does not smoke, does not use any alcohol. Lives at home. He is not . PHYSICAL EXAMINATION: GENERAL: On examination, he is awake and alert and oriented. VITAL SIGNS: Graphic trend shows a pressure of 132/70, pulse of 96, respirations about 14, afebrile. LUNGS: Diminished breath sounds, scattered wheezes and rhonchi, some rales heard at the right mid lung area. ABDOMEN: Obese, soft. EXTREMITIES: Without any edema. ASSESSMENT AND PLAN: 1. The patient presents with cough, shortness of breath and right-sided chest pain, most likely pleuritic in nature possibly from underlying pneumonic process. CT of the chest will be done today. The patient will be continued on IV antibiotics and breathing treatments. Sputum has been sent for culture and sensitivity. 2. Benign hypertension, controlled. He seems slightly tachycardic this morning, most likely from the breathing treatments. We will continue to monitor that. 3. Hypothyroidism. Medications will be restarted. [place], [place] PATIENT HISTORY AND PHYSICAL EXAM NAME: VERNON VILLALOBOS UNIT #: [id number] ROOM: 403 DOCTOR: ALBERT GATES MD BIRTHDATE: [birth year] ALBERT GATES MD CM:HISPHYS:PATIENT HISTORY AND PHYSICAL EXAMINATION 0546 ALBERT GATES MD 05/15/18 0731 interface
--- NOTE | ~2018-05-14 | EKG ---
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
--- NOTE | ~2018-05-14 | EKG ---
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 Electronically Signed On 05-14-2018 13:45:35 PDT by Rene Ortiz MD CM:EKGRPT:ELECTROCARDIOGRAM REPORT 1412 1345 TITA PATTERSON DRAFT REPORT TITA NUNEZ MD
--- NOTE | ~2018-05-14 | EKG ---
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
[~2018-05-14 08:01] MED LIST changes: +FOLIC ACID0.8 M1 PO
[2018-05-14 08:02] VITALS: BP 155/95
[2018-05-14 08:47] LABS: BASO # 0.1 10*3/uL (0.0-0.1); BASO % 0.5 % (0.0-1.0); EOS # 0.2 10*3/uL (0.0-0.4); EOS % 1.2 % (1.0-4.0); HEMATOCRIT 39.2 % (42.0-52.0); HEMOGLOBIN 12.9 g/dl (14.0-18.0); LYMPH # 3.1 10*3/uL (1.3-4.4); LYMPH % 20.7 % (27.0-41.0); MEAN CELL VOLUME 90.7 fl (80.0-94.0); MEAN CORPUSCULAR HGB 29.9 pg (27.0-31.0); MEAN CORPUSCULAR HGB CONC 32.9 g/dl (33.0-37.0); MEAN PLATELET VOLUME 8.8 fl (9.6-12.3); MONO % 6.5 % (3.0-9.0); NEUT # 10.4 10*3/uL (2.3-7.9); NEUT % 70.5 % (47.0-73.0); PLATELET COUNT AUTOMATED 302 10*3/uL (130-400); RED BLOOD COUNT 4.32 10*6/uL (4.50-5.90); RED CELL DISTRI WIDTH 14.4 % (0-14.5); WHITE BLOOD COUNT 14.8 10*3/uL (4.8-10.8)
[2018-05-14 08:58] LABS: ACT PARTIAL THROMBO TIME 24.3 SECONDS (20.8-31.5); INTERNATIONAL NORM RATIO 0.9 (2.0-3.5)
[2018-05-14 09:02] LABS: ALBUMIN 3.6 gm/dl (3.1-4.5); ALKALINE PHOSPHATASE 117 U/L (45-117); BUN 5 mg/dl (7-24); CHLORIDE 102 mmol/L (98-107); CREATININE 0.79 mg/dL (0.70-1.30); POTASSIUM 3.8 mmol/L (3.5-5.1); SGOT/AST 17 IU/L (3-35); SGPT/ALT 28 U/L (12-78); SODIUM 138 mmol/L (136-145); TOTAL PROTEIN 7.4 gm/dL (6.4-8.2)
[2018-05-14 09:20] LABS: TROPONIN I < 0.015 ng/ml (<0.045)
[2018-05-14 09:45] VITALS: BP 127/83
[2018-05-14 09:59] LABS: BILIRUBIN NEGATIVE (NEGATIVE); BLOOD NEGATIVE (NEGATIVE); CLARITY CLEAR (CLEAR); COLOR YELLOW (YELLOW); GLUCOSE NEGATIVE (NEGATIVE); KETONE NEGATIVE (NEGATIVE); LEUKO ESTERASE NEGATIVE (NEGATIVE); NITRITE NEGATIVE (NEGATIVE); SPECIFIC GRAVITY <= 1.005 (1.005-1.030); UROBILINOGEN 0.2 E.U./dl (0.2-1.0)
[2018-05-14 10:37] VITALS: BP 102/81
[2018-05-14 12:00] VITALS: BP 123/76
[2018-05-14 16:00] VITALS: BP 148/84
[2018-05-14 20:00] VITALS: BP 142/91
[2018-05-15] VITALS: BP 151/106
[2018-05-15 06:22] LABS: HEMATOCRIT 39.5 % (42.0-52.0); HEMOGLOBIN 12.8 g/dl (14.0-18.0); MEAN CORPUSCULAR HGB 29.5 pg (27.0-31.0); MEAN CORPUSCULAR HGB CONC 32.4 g/dl (33.0-37.0); MEAN PLATELET VOLUME 9.8 fl (9.6-12.3); PLATELET COUNT AUTOMATED 312 10*3/uL (130-400); RED BLOOD COUNT 4.34 10*6/uL (4.50-5.90); RED CELL DISTRI WIDTH 14.4 % (0-14.5); WHITE BLOOD COUNT 21.6 10*3/uL (4.8-10.8)
[2018-05-15 06:44] LABS: BUN 10 mg/dl (7-24); CHLORIDE 98 mmol/L (98-107); CREATININE 1.06 mg/dL (0.70-1.30); POTASSIUM 3.7 mmol/L (3.5-5.1); SODIUM 135 mmol/L (136-145)
[2018-05-15 06:53] LABS: ATYPICAL LYMPHS 1 % (0-0); PLATELET SUFFICIENCY NORMAL (NORMAL); TOTAL CELLS COUNTED 100 #CELLS
[2018-05-15 08:00] VITALS: BP 172/88
[2018-05-15 12:00] VITALS: BP 132/82
== END 2018-05-15 13:38 | disposition left against medical advice (07) | DRG 204 ==
LOC: ED 08:01 → EDHOLD 09:30 → 4E 10:14
PROVIDERS: Emergency Medicine; Internal Medicine
DX: R07.81 Pleurodynia (principal); J44.1 Chronic obstructive pulmonary disease with (acute) exacerbation; K21.9 Gastro-esophageal reflux disease without esophagitis; E03.9 Hypothyroidism, unspecified; E78.2 Mixed hyperlipidemia; I10 Essential (primary) hypertension; K57.90 Diverticulosis of intestine, part unspecified, without perforation or abscess without bleeding; E66.9 Obesity, unspecified; M54.32 Sciatica, left side; I25.10 Atherosclerotic heart disease of native coronary artery without angina pectoris; Z88.5 Allergy status to narcotic agent; Z79.899 Other long term (current) drug therapy; Z79.82 Long term (current) use of aspirin; Z98.41 Cataract extraction status, right eye; Z98.42 Cataract extraction status, left eye; Z95.5 Presence of coronary angioplasty implant and graft; Z87.891 Personal history of nicotine dependence; Z80.1 Family history of malignant neoplasm of trachea, bronchus and lung; Z80.8 Family history of malignant neoplasm of other organs or systems; Z83.6 Family history of other diseases of the respiratory system; Z83.3 Family history of diabetes mellitus; Z68.31 Body mass index [BMI] 31.0-31.9, adult

== ENCOUNTER 2018-08-03 12:56 | Inpatient (IN) | payer OTHER ==
[~2018-08-03] VITALS: Ht 154.9 cm; Wt 83.2 kg
--- NOTE | ~2018-08-03 | WRIGHTHP ---
[place], [place] PATIENT HISTORY AND PHYSICAL EXAM NAME: VERNON VILLALOBOS [facility] #: [id number] UNIT #: [id number] ROOM: 415 DOCTOR: JASSON LANDIS MD BIRTHDATE: [birth year] DOS: 08/03/2018 HISTORY OF PRESENT ILLNESS: The patient presented to the Emergency Department with episodes of vomiting and diarrhea. Starting the night before he had vomited 4 times and had 10 episodes of diarrhea and abdominal pains. He was feeling lightheaded and dizzy and feverish. The patient was recommended for admission and further management, but soon after admission, he left the hospital against medical advice. Acute exacerbation of COPD was to be treated with bronchodilators, oxygen, antibiotics, but the treatment could not be completed. He was given Levaquin in the Emergency Department and considered to be septic. For further details of this admission, please refer to the Emergency Room Department note. 1. The patient has history of COPD. 2. Coronary artery disease without chest pains. 3. Benign essential hypertension. 4. Hypothyroidism. The patient to be treated with supplements. JASSON LANDIS MD CM:HISPHYS:PATIENT HISTORY AND PHYSICAL EXAMINATION 1031 1045 JASSON LANDIS MD 08/31/18 1046 interface
--- NOTE | ~2018-08-03 | EKG ---
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
[2018-08-03 12:57] VITALS: BP 135/82
[2018-08-03 14:08] LABS: BILIRUBIN NEGATIVE (NEGATIVE); BLOOD NEGATIVE (NEGATIVE); CLARITY CLEAR (CLEAR); COLOR YELLOW (YELLOW); GLUCOSE NEGATIVE (NEGATIVE); KETONE NEGATIVE (NEGATIVE); LEUKO ESTERASE NEGATIVE (NEGATIVE); NITRITE NEGATIVE (NEGATIVE); SPECIFIC GRAVITY 1.025 (1.005-1.030); UROBILINOGEN 0.2 E.U./dl (0.2-1.0)
[2018-08-03 14:26] VITALS: BP 137/86
[2018-08-03 14:26] LABS: MUCOUS TRACE; RBC 0-2 rbc/hpf (0-2)
[2018-08-03 14:36] LABS: BASO % 0.2 % (0.0-1.0); EOS % 0.3 % (1.0-4.0); HEMATOCRIT 41.2 % (42.0-52.0); HEMOGLOBIN 13.8 g/dl (14.0-18.0); LYMPH % 6.7 % (27.0-41.0); MEAN CORPUSCULAR HGB 29.5 pg (27.0-31.0); MEAN CORPUSCULAR HGB CONC 33.5 g/dl (33.0-37.0); MONO # 0.4 10*3/uL (0.1-1.0); MONO % 2.9 % (3.0-9.0); NEUT # 13.6 10*3/uL (2.3-7.9); PLATELET COUNT AUTOMATED 313 10*3/uL (130-400); RED BLOOD COUNT 4.68 10*6/uL (4.50-5.90); RED CELL DISTRI WIDTH 15.6 % (0-14.5); WHITE BLOOD COUNT 15.3 10*3/uL (4.8-10.8)
[2018-08-03 14:44] LABS: ACT PARTIAL THROMBO TIME 21.3 SECONDS (20.8-31.5); INTERNATIONAL NORM RATIO 0.9 (2.0-3.5)
[2018-08-03 14:59] LABS: ALBUMIN 3.5 gm/dl (3.1-4.5); BUN 14 mg/dl (7-24); CHLORIDE 101 mmol/L (98-107); CREATININE 0.93 mg/dL (0.70-1.30); POTASSIUM 4.1 mmol/L (3.5-5.1); SGOT/AST 17 IU/L (3-35); SGPT/ALT 32 U/L (12-78); SODIUM 134 mmol/L (136-145)
[2018-08-03 15:04] LABS: ALKALINE PHOSPHATASE 141 U/L (45-117); TOTAL PROTEIN 7.1 gm/dL (6.4-8.2)
[2018-08-03 15:21] LABS: TROPONIN I < 0.015 ng/ml (<0.045)
[2018-08-03 15:39] VITALS: BP 146/89
[2018-08-03 16:00] VITALS: BP 140/81
--- NOTE | 2018-08-03 16:19 | NUR ---
THE PATIENT IS A&OX3 AND DENIES ANY WOUNDS
[2018-08-03 16:32] VITALS: BP 140/87
--- NOTE | 2018-08-03 16:32 | NUR ---
Time: 1631 A 57 year old male admitted to under services of DR. BOBY BRO,JASSON Lopez Pt. arrived via bed from ER. Chief complaint: gastroenteritis. KEEGAN LUNA
[2018-08-03] MEDS ORDERED: METOPROLOL TAR100 M1 PO (17:13)
[2018-08-03] MEDS ORDERED: ARNUITY ELLIP200 MCG INH (17:16)
--- NOTE | 2018-08-03 17:29 | NUR ---
MED REC UPDATED VIA PT RECALL
[2018-08-03 20:00] VITALS: BP 136/81
[2018-08-04] VITALS: BP 130/86
[2018-08-04 08:00] VITALS: BP 169/98
--- NOTE | 2018-08-04 09:00 | NUR ---
Cna Instructor in to talk to patient. Patient states lives at home with his girlfriend. There are 10 steps in the home. Physician: Dr. Blayne Villafana Pharmacy: [facility] Home health services: none Patient's level of ADLs: INDEPENDENT Patient has working utilities: yes DME: O2 @ 2L nc at HS, portable O2 tanks, nebulizer, O2 supplier [facility] Follow-up physician's appointment after d/c: he prefers to make his own follow up appt after discharge Does patient want to access PORTAL?: no Discharge plan discussed with patient. He lives at home with his girlfriend. He is independent in his ADLs and ambulation. Discussed home health care service and he denies any home needs at this time. When medically stable he will be discharged to home. KARLI BUSTILLOS
--- NOTE | 2018-08-04 11:46 | NUR ---
PT LEFT AMA D/T HIS GIRLFRIEND BEING DISCHARGED FROM ANOTHER PART OF HOSPITAL, NOTIFIED
== END 2018-08-04 11:46 | disposition left against medical advice (07) | DRG 872 ==
LOC: ED 12:56 → EDHOLD 15:46 → 4E 16:13
PROVIDERS: Internal Medicine; ADMIT Internal Medicine
DX: A41.9 Sepsis, unspecified organism (principal); J44.1 Chronic obstructive pulmonary disease with (acute) exacerbation; G89.29 Other chronic pain; M54.5 Low back pain; I25.10 Atherosclerotic heart disease of native coronary artery without angina pectoris; K57.90 Diverticulosis of intestine, part unspecified, without perforation or abscess without bleeding; K21.9 Gastro-esophageal reflux disease without esophagitis; E03.9 Hypothyroidism, unspecified; M54.32 Sciatica, left side; E78.2 Mixed hyperlipidemia; E66.9 Obesity, unspecified; Z96.1 Presence of intraocular lens; Z82.49 Family history of ischemic heart disease and other diseases of the circulatory system; Z80.1 Family history of malignant neoplasm of trachea, bronchus and lung; Z80.8 Family history of malignant neoplasm of other organs or systems; Z83.3 Family history of diabetes mellitus; Z88.8 Allergy status to other drugs, medicaments and biological substances; Z79.899 Other long term (current) drug therapy; Z79.82 Long term (current) use of aspirin; Z87.891 Personal history of nicotine dependence; Z95.5 Presence of coronary angioplasty implant and graft; Z98.41 Cataract extraction status, right eye; Z98.42 Cataract extraction status, left eye; Z82.5 Family history of asthma and other chronic lower respiratory diseases; Z68.34 Body mass index [BMI] 34.0-34.9, adult

== ENCOUNTER 2018-08-07 16:27 | Inpatient (IN) | payer OTHER ==
[~2018-08-07] VITALS: Ht 154.9 cm; Wt 84.4 kg
--- NOTE | ~2018-08-07 | PR ---
[place], [place] PROGRESS NOTE NAME[id number] UNIT #: [id number] ROOM: 503 DOCTOR: ALBERT GATES MD BIRTHDATE: [birth year] DOS: 08/10/2018 SUBJECTIVE: The patient is doing better, does not have any new complaints. OBJECTIVE: VITAL SIGNS: Blood pressure is 140/80, pulse of 80, respirations 20 and temperature 98.0. LUNGS: Clear this morning. HEART: Regular. ABDOMEN: Obese, soft, nontender. EXTREMITIES: Without any edema. ASSESSMENT AND PLAN: 1. Acute exacerbation of chronic obstructive pulmonary disease, improving. 2. Acute tracheobronchitis. The patient's cough and shortness of breath has resolved. The plan is to discharge him to home today to follow up as an outpatient. ALBERT GATES MD CM:PNTRANS 0857 0053 ALBERT GATES MD 08/11/18 0054 interface
--- NOTE | ~2018-08-07 | PR ---
[place], [place] PROGRESS NOTE NAME: VERNON VILLALOBOS [facility] #: [id number] UNIT #: [id number] ROOM: 503 DOCTOR: ALBERT GATES MD BIRTHDATE: [birth year] DOS: SUBJECTIVE: The patient is a little bit better than when he came in. He is ambulating. He has minimal shortness of breath and cough. OBJECTIVE: VITAL SIGNS: Graphic trend shows a pressure of 120/75, pulse of 95, respirations 18, temperature 97.8. LUNGS: Diminished breath sounds, scattered wheezes. HEART: Regular. ABDOMEN: Obese. EXTREMITIES: Without any edema. ASSESSMENT AND PLAN: 1. Acute exacerbation of chronic obstructive pulmonary disease, improving. 2. Acute tracheobronchitis, on IV antibiotics. Chest x-ray does not show any new pathology. The patient is stable. The plan is to discharge him to home tomorrow after the steroids are tapered down. ALBERT GATES MD CM:PNTRANS 0840 0847 ALBERT GATES MD 08/09/18 0848 interface
--- NOTE | ~2018-08-07 | DS ---
[place], [place] DISCHARGE SUMMARY NAME: VERNON VILLALOBOS [facility] #: [id number] UNIT #: [id number] ROOM: 503 DOCTOR: ALBERT GATES MD BIRTHDATE: [birth year] DOS: 08/10/2018 DIAGNOSES: 1. Acute exacerbation of chronic obstructive pulmonary disease. 2. Acute tracheobronchitis. 3. Coronary artery disease with history of stent placement. 4. Hypothyroidism. 5. Mixed hyperlipidemia. DISCHARGE MEDICATIONS: The patient's medications are the same as in admission. Prednisone tapering dose, doxycycline 100 b.i.d., folic acid 0.8 mg daily, aspirin 325 daily, levothyroxine 50 mcg daily, vitamin D 5000 international units daily, isosorbide 60 daily, loratadine 10 daily, Pravachol 40 daily, omeprazole 20 daily, DuoNeb q. 4 hours, metoprolol 100 mg daily, Arnuity Ellipta 200 inhalation, 1 inhalation daily, and albuterol p.r.n. HOSPITAL COURSE: The patient is a 57-year-old, has been admitted to the hospital, every time he comes in, he signs out before getting complete treatment and goes on without any medications, came back in this time, and this time, he has decided to stay. He denies having any chest pains or palpitations. After admission, he was placed on steroids, antibiotics, and breathing treatments, and with that his bronchospasm and his cough has subsided. He does have a cough which is productive of scant amounts of brownish sputum. The patient is back to his baseline status, so the plan is to discharge him to home today. He does not have any more bronchospasm. The patient will be followed by Dr. Villafana as an outpatient. ALBERT GATES MD CM:DISCHJOSE MARIA 1 2 ALBERT GATES MD 08/10/18914 interface
--- NOTE | ~2018-08-07 | EKG ---
[place], [place] ELECTROCARDIOGRAM REPORT NAME: VERNON VILLALOBOS UNIT #: [id number] ROOM: 503 DOCTOR: YESENIA DRAFT REPORT BIRTHDATE: [birth year] [facility] Test Date: 2018-08-07 Test Time: 16:56:10 Pat Name: VERNON VILLALOBOS Department: Room: 503 Gender: M Pulmonary Care Nurse: Tabitha Carlos : 1960 Requested By: EARLINE HURST Order Number: [id number] Reading MD: Rene Ortiz MD Measurements Intervals [place] Rate: 103 P: 15 CT: 148 QRS: -7 QRSD: 138 T: -21 QT: 359 QTc: 470 Interpretive Statements Sinus tachycardia Right bundle branch block Baseline wander in lead(s) V2 Compared to ECG 08/03/2018 13:46:08 Sinus rhythm no longer present Electronically Signed On 08-08-2018 14:38:57 PST by Rene Ortiz MD CM:EKGRPT:ELECTROCARDIOGRAM REPORT 1656 1438 EARLINE JOHN DRAFT REPORT EARLINE HURST DO
--- NOTE | ~2018-08-07 | WRIGHTHP ---
[place], [place] PATIENT HISTORY AND PHYSICAL EXAM NAME: VERNON VILLALOBOS [facility] #: [id number] UNIT #: [id number] ROOM: 503 DOCTOR: ALBERT GATES MD BIRTHDATE: [birth year] DOS: 08/07/2018 HISTORY OF PRESENT ILLNESS: The patient is 57 years old, very well known to us, comes in with complaints of difficulty breathing, cough and inability to ambulate because of his increasing breathing trouble. He has been in the hospital multiple times in the last 2 months, but he always signs out AMA and does not get the full benefit of treatment. He denies having any chest pains or palpitations, does not have any fever or chills this morning. PAST MEDICAL HISTORY: Significant for: 1. COPD. 2. Hypothyroidism. 3. Benign hypertension. 4. Mixed hyperlipidemia. 5. Coronary artery disease with history of stent placement. MEDICATIONS: Medications that he is currently on are Ellipta inhalation daily breathing treatments, aspirin 325, vitamin D 5000, folic acid 0.8, isosorbide 60, levothyroxine 50 mcg, loratadine 10 daily, metoprolol 100 daily, omeprazole 20 daily, Pravachol 40 daily. SOCIAL HISTORY: Nonsmoker does not use any alcohol. PHYSICAL EXAMINATION: GENERAL: He is awake, alert, and oriented. VITAL SIGNS: Blood pressure is 155/87, pulse of 90, respirations 20, temperature 97.5. LUNGS: Diminished breath sounds, scattered wheezes and rhonchi. HEART: Regular. ABDOMEN: Obese, soft. EXTREMITIES: Without any edema. ASSESSMENT AND PLAN: 1. Acute exacerbation of chronic obstructive pulmonary disease. The patient is placed on breathing treatments, Pulmicort, IV steroids, and antibiotics. 2. Acute tracheobronchitis. Sputum cultures ordered. The patient is placed on IV antibiotics. 3. Benign hypertension, controlled. [place], [place] PATIENT HISTORY AND PHYSICAL EXAM NAME: VERNON VILLALOBOS [facility] #: [id number] UNIT #: [id number] ROOM: 503 DOCTOR: ALBERT GATES MD BIRTHDATE: [birth year] ALBERT GATES MD CM:HISPHYS:PATIENT HISTORY AND PHYSICAL EXAMINATION 0851 0906 ALBERT GATES MD 08/25/18 0915 interface
[2018-08-07 16:27] VITALS: BP 144/77
[~2018-08-07 16:27] MED LIST changes: +ARNUITY ELLIP200 MCG INH; +METOPROLOL TAR100 M1 PO
[2018-08-07 16:59] LABS: BASO # 0.1 10*3/uL (0.0-0.1); BASO % 0.4 % (0.0-1.0); EOS # 0.4 10*3/uL (0.0-0.4); EOS % 2.3 % (1.0-4.0); HEMOGLOBIN 13.1 g/dl (14.0-18.0); LYMPH # 2.7 10*3/uL (1.3-4.4); LYMPH % 15.4 % (27.0-41.0); MEAN CELL VOLUME 89.3 fl (80.0-94.0); MEAN CORPUSCULAR HGB 29.2 pg (27.0-31.0); MEAN CORPUSCULAR HGB CONC 32.8 g/dl (33.0-37.0); MEAN PLATELET VOLUME 8.8 fl (9.6-12.3); MONO # 0.8 10*3/uL (0.1-1.0); MONO % 4.7 % (3.0-9.0); NEUT # 13.4 10*3/uL (2.3-7.9); NEUT % 76.2 % (47.0-73.0); PLATELET COUNT AUTOMATED 362 10*3/uL (130-400); RED BLOOD COUNT 4.48 10*6/uL (4.50-5.90); RED CELL DISTRI WIDTH 15.6 % (0-14.5); WHITE BLOOD COUNT 17.6 10*3/uL (4.8-10.8)
[2018-08-07 17:00] VITALS: BP 130/80
[2018-08-07 17:11] LABS: ACT PARTIAL THROMBO TIME 23.1 SECONDS (20.8-31.5); INTERNATIONAL NORM RATIO 0.9 (2.0-3.5)
[2018-08-07 17:14] LABS: ALBUMIN 3.4 gm/dl (3.1-4.5); ALKALINE PHOSPHATASE 125 U/L (45-117); BUN 11 mg/dl (7-24); CHLORIDE 101 mmol/L (98-107); CREATININE 0.95 mg/dL (0.70-1.30); LIPASE 127 U/L (73-393); POTASSIUM 3.5 mmol/L (3.5-5.1); SGOT/AST 14 IU/L (3-35); SGPT/ALT 30 U/L (12-78); SODIUM 137 mmol/L (136-145); TOTAL PROTEIN 7.1 gm/dL (6.4-8.2); TROPONIN I < 0.015 ng/ml (<0.045)
[2018-08-07 18:02] VITALS: BP 136/78
[2018-08-07 18:34] VITALS: BP 136/73
[2018-08-07] MEDS ORDERED: PHARMASSURE FO0.8 MG PO (18:45)
[2018-08-07] MEDS ORDERED: ASPIRIN325 M2 PO (18:46)
[2018-08-07] MEDS ORDERED: Synthroid,Levo50 MCG PO (18:46)
[2018-08-07] MEDS ORDERED: VITAMIN D32000 UNI1 PO (18:47)
[2018-08-07] MEDS ORDERED: IMDUR SA60 M1 PO (18:48)
[2018-08-07] MEDS ORDERED: CLARITIN10 MG PO (18:48)
[2018-08-07] MEDS ORDERED: PRAVASTATIN SOD40 MG PO (18:49)
[2018-08-07] MEDS ORDERED: OMEPRAZOLE20 M2 PO (18:50)
[2018-08-07] MEDS ORDERED: Ipratropium Brom3 ML INH (18:50)
[2018-08-07] MEDS ORDERED: LOPRESSOR100 M1 PO (18:51)
[2018-08-07] MEDS ORDERED: ARNUITY ELLIP200 MCG INH (18:54)
[2018-08-07] MEDS ORDERED: PROVENTIL HFA6.7 GM INH (18:54)
[2018-08-07 20:00] VITALS: BP 158/77
[2018-08-08] VITALS: BP 138/84
[2018-08-08 08:00] VITALS: BP 130/82; BP 155/87
[2018-08-08 12:00] VITALS: BP 129/48
[2018-08-08 16:00] VITALS: BP 132/77
[2018-08-08 20:00] VITALS: BP 112/67
[2018-08-09] VITALS: BP 120/75
[2018-08-09 08:00] VITALS: BP 138/78
[2018-08-09 12:00] VITALS: BP 121/65
[2018-08-09 16:00] VITALS: BP 141/80
[2018-08-09 20:00] VITALS: BP 141/85
[2018-08-10] VITALS: BP 140/80
[2018-08-10 08:00] VITALS: BP 160/93
[2018-08-10] MEDS ORDERED: DOXYCYCLINE100 MG PO (09:00)
[2018-08-10] MEDS ORDERED: PREDNISONE5 MG PO (09:00)
== END 2018-08-10 09:23 | disposition home or self-care (01) | DRG 871 ==
LOC: ED 16:27 → 5E 17:34 → EDHOLD 17:34 → 5E 18:11
PROVIDERS: Emergency Medicine; ADMIT Internal Medicine
DX: A41.9 Sepsis, unspecified organism (principal); J18.9 Pneumonia, unspecified organism; J44.1 Chronic obstructive pulmonary disease with (acute) exacerbation; J44.0 Chronic obstructive pulmonary disease with (acute) lower respiratory infection; J20.9 Acute bronchitis, unspecified; E78.2 Mixed hyperlipidemia; I25.10 Atherosclerotic heart disease of native coronary artery without angina pectoris; E03.9 Hypothyroidism, unspecified; G89.29 Other chronic pain; K57.90 Diverticulosis of intestine, part unspecified, without perforation or abscess without bleeding; I10 Essential (primary) hypertension; K21.9 Gastro-esophageal reflux disease without esophagitis; M54.42 Lumbago with sciatica, left side; E66.9 Obesity, unspecified; Z96.1 Presence of intraocular lens; Z80.3 Family history of malignant neoplasm of breast; Z68.35 Body mass index [BMI] 35.0-35.9, adult; Z95.5 Presence of coronary angioplasty implant and graft; I25.2 Old myocardial infarction; Z86.010 Personal history of colon polyps; Z98.42 Cataract extraction status, left eye; Z98.41 Cataract extraction status, right eye; Z87.891 Personal history of nicotine dependence; Z80.1 Family history of malignant neoplasm of trachea, bronchus and lung; Z80.8 Family history of malignant neoplasm of other organs or systems; Z83.3 Family history of diabetes mellitus; Z82.5 Family history of asthma and other chronic lower respiratory diseases

== ENCOUNTER → 2018-11-14 | Outpatient (CLI) | payer OTHER ==
[~2018-11-14] MED LIST changes: +ASPIRIN325 M2 PO; +CELEBREX100 MG PO; +DOXYCYCLINE100 MG PO; +FLONASE ALLERG9.9 ML NAS; +IMDUR SA60 M1 PO; +Ipratropium Brom3 ML INH; +LOPRESSOR100 M1 PO; +OMEPRAZOLE20 M2 PO; +PHARMASSURE FO0.8 MG PO; +PRAVASTATIN SOD40 MG PO; +PREDNISONE5 MG PO; +PROVENTIL HFA6.7 GM INH; +VITAMIN D32000 UNI1 PO
== END | disposition home or self-care (01) ==
LOC: LAB 11:41
DX: R53.83 Other fatigue (principal)

== ENCOUNTER → 2019-01-12 | Outpatient (CLI) | payer OTHER | END | disposition home or self-care (01) | LOC: RAD 15:57 | DX: M17.11 Unilateral primary osteoarthritis, right knee (principal); M79.89 Other specified soft tissue disorders ==

== ENCOUNTER 2019-01-21 14:48 | Emergency (ER) | payer OTHER ==
[~2019-01-21] VITALS: Ht 154.9 cm; Wt 83.5 kg
[2019-01-21 14:48] VITALS: BP 142/77
[~2019-01-21 14:48] MED LIST changes: -CELEBREX100 MG PO; -FLONASE ALLERG9.9 ML NAS
[2019-01-21] MEDS ORDERED: CELEBREX100 MG PO (14:50)
[2019-01-21] MEDS ORDERED: VIBRAMYCIN100 MG PO (15:14)
[2019-01-21] MEDS ORDERED: FLONASE ALLERG9.9 ML NAS (15:14)
[2019-01-21] MEDS ORDERED: ZYRTEC10 MG PO (15:14)
== END 2019-01-21 15:22 | disposition home or self-care (01) ==
LOC: ED 14:48
DX: J32.9 Chronic sinusitis, unspecified (principal); J40 Bronchitis, not specified as acute or chronic; I25.2 Old myocardial infarction; Z88.4 Allergy status to anesthetic agent; Z79.82 Long term (current) use of aspirin; Z79.899 Other long term (current) drug therapy; Z87.891 Personal history of nicotine dependence

== ENCOUNTER → 2019-03-02 | Day surgery (SDC) | payer OTHER ==
[~2019-03-02] VITALS: Ht 154.9 cm; Wt 79.8 kg
[~2019-03-02] MED LIST changes: +CELEBREX100 MG PO; +FLONASE ALLERG9.9 ML NAS
--- NOTE | ~2019-03-02 | PROC NOTE ---
[place], [place] PROCEDURE NOTE NAME: [facility] #: [id number] UNIT #: [id number] ROOM: DOCTOR: ALBIN FREIRE MD BIRTHDATE: [birth year] DOS: 03/02/2019 PREOPERATIVE DIAGNOSIS: Left hand cyst. POSTOPERATIVE DIAGNOSIS: Left hand cyst. PROCEDURE: Excision of left hand cyst. SURGEON: Albin Freire M.D. FRONT OFFICE SUPERVISOR: CHERISE. ANESTHESIA: Local (3 mL of 1% lidocaine with epinephrine). INDICATIONS: This is a 58-year-old male who has a symptomatic left hand cyst who is here for the above-mentioned procedure. The procedure and its complications were explained to the patient in detail preoperatively. Complications that were discussed included but were not limited to bleeding, infection, hematoma/seroma/abscess formation, and damage to lying vital structures. He agreed to proceed. DESCRIPTION OF PROCEDURE: After identifying the patient, the patient was brought to the operating suite and laid in the supine position. After time-out procedure was called, the parts were painted and draped in the usual sterile fashion. An elliptical incision was marked and local anesthesia was infiltrated in the line of the incision. Incision was made with the help of a knife and deepened in layers with the help of electrocautery. The cyst was excised in its entirety after it was from the surrounding structures. It was sent for histopathological diagnosis. After hemostasis was confirmed, the subcutaneous tissue was approximated with the help of a single 3-0 Vicryl stitch and the skin was then approximated with the help of a single 4-0 Vicryl stitch in a subcuticular fashion. Dressing was placed. The patient tolerated the procedure well and was brought back to the recovery room in stable fashion. There were no complications. Dr. Albin Freire, the attending surgeon, was present throughout the operating case. Albin Freire MD CM:PROCNOTE:PROCEDURE NOTE [id number] ALBIN FREIRE MD
[2019-03-02 08:20] VITALS: BP 132/71
[2019-03-02 09:25] VITALS: BP 159/88
[2019-03-02 09:35] VITALS: BP 160/87
[2019-03-02 09:45] VITALS: BP 147/89
[2019-03-02 09:48] VITALS: BP 142/86
== END | disposition home or self-care (01) ==
LOC: SDC 02-24 02:06
DX: M25.842 Other specified joint disorders, left hand (principal); L72.9 Follicular cyst of the skin and subcutaneous tissue, unspecified; I25.2 Old myocardial infarction; M19.90 Unspecified osteoarthritis, unspecified site; J44.9 Chronic obstructive pulmonary disease, unspecified; I25.10 Atherosclerotic heart disease of native coronary artery without angina pectoris; K21.9 Gastro-esophageal reflux disease without esophagitis; Z98.890 Other specified postprocedural states

== ENCOUNTER 2019-07-12 14:20 | Emergency (ER) | payer OTHER ==
[~2019-07-12] VITALS: Ht 157.4 cm; Wt 80.7 kg
[2019-07-12 14:22] VITALS: BP 154/80
[2019-07-12] MEDS ORDERED: ZYRTEC10 MG PO (15:10)
[2019-07-12] MEDS ORDERED: AMOXICILLIN500 M2 PO (15:10)
== END 2019-07-12 15:55 | disposition home or self-care (01) ==
LOC: ED 14:20
DX: J32.9 Chronic sinusitis, unspecified (principal); K21.9 Gastro-esophageal reflux disease without esophagitis; I10 Essential (primary) hypertension; I25.10 Atherosclerotic heart disease of native coronary artery without angina pectoris; E78.00 Pure hypercholesterolemia, unspecified; E03.9 Hypothyroidism, unspecified; I25.2 Old myocardial infarction; Z88.4 Allergy status to anesthetic agent; Z79.899 Other long term (current) drug therapy; Z79.82 Long term (current) use of aspirin; Z87.891 Personal history of nicotine dependence

== ENCOUNTER → 2019-08-18 | Outpatient (CLI) | payer OTHER ==
[~2019-08-18] MED LIST changes: +AMOXICILLIN500 M2 PO
[2019-08-18 09:35] LABS: BASO # 0.1 10*3/uL (0.0-0.1); BASO % 0.5 % (0.0-1.0); EOS # 0.2 10*3/uL (0.0-0.4); EOS % 1.8 % (1.0-4.0); HEMOGLOBIN 14.6 g/dl (14.0-18.0); LYMPH # 3.7 10*3/uL (1.3-4.4); LYMPH % 27.6 % (27.0-41.0); MEAN CELL VOLUME 91.7 fl (80.0-94.0); MEAN CORPUSCULAR HGB 30.4 pg (27.0-31.0); MEAN CORPUSCULAR HGB CONC 33.2 g/dl (33.0-37.0); MEAN PLATELET VOLUME 9.3 fl (9.6-12.3); MONO # 0.8 10*3/uL (0.1-1.0); MONO % 5.6 % (3.0-9.0); NEUT # 8.5 10*3/uL (2.3-7.9); NEUT % 63.9 % (47.0-73.0); PLATELET COUNT AUTOMATED 293 10*3/uL (130-400); RED CELL DISTRI WIDTH 13.7 % (0-14.5); WHITE BLOOD COUNT 13.3 10*3/uL (4.8-10.8)
[2019-08-18 10:01] LABS: CHLORIDE 103 mmol/L (98-107); POTASSIUM 3.9 mmol/L (3.5-5.1); SODIUM 135 mmol/L (136-145)
[2019-08-18 10:31] LABS: ALBUMIN 3.8 gm/dl (3.1-4.5); ALKALINE PHOSPHATASE 123 U/L (45-117); BUN 12 mg/dl (7-24); CHOLESTEROL 196 mg/dL (<200); CPK 71 U/L (39-308); FREE T4 1.09 ng/dl (0.76-1.46); HDL CHOLESTEROL 34 mg/dl (40-60); LDL CHOLESTEROL 89 mg/dL (9-159); SGOT/AST 19 IU/L (3-35); SGPT/ALT 38 U/L (12-78); TOTAL PROTEIN 7.1 gm/dL (6.4-8.2); TRIGLYCERIDES 367 mg/dl (<150); VLDL CHOLESTEROL 73 mg/dL (6-40)
[2019-08-18 10:36] LABS: VITAMIN D, 25-HYDROXY 52.1 ng/mL (30-100)
== END | disposition home or self-care (01) ==
LOC: LAB 08:50
PROVIDERS: Internal Medicine
DX: Z12.5 Encounter for screening for malignant neoplasm of prostate (principal); I10 Essential (primary) hypertension; E78.2 Mixed hyperlipidemia; E11.9 Type 2 diabetes mellitus without complications; E55.9 Vitamin D deficiency, unspecified; I25.10 Atherosclerotic heart disease of native coronary artery without angina pectoris

== ENCOUNTER → 2019-09-19 | Outpatient (CLI) | payer OTHER | END | disposition home or self-care (01) | LOC: RAD 13:42 | DX: M17.11 Unilateral primary osteoarthritis, right knee (principal) ==

== ENCOUNTER 2020-01-08 18:54 | Emergency (ER) | payer OTHER ==
[~2020-01-08] VITALS: Ht 154.9 cm; Wt 82.6 kg
[2020-01-08 19:11] VITALS: BP 137/57
== END 2020-01-08 19:50 | disposition home or self-care (01) ==
LOC: ED 18:54
DX: M25.561 Pain in right knee (principal); M19.90 Unspecified osteoarthritis, unspecified site; Z53.21 Procedure and treatment not carried out due to patient leaving prior to being seen by health care provider

== ENCOUNTER 2020-05-08 21:04 | Emergency (ER) | payer OTHER ==
[~2020-05-08] VITALS: Ht 154.9 cm; Wt 82.6 kg
[2020-05-08 21:16] VITALS: BP 149/87
== END 2020-05-09 01:31 | disposition home or self-care (01) ==
LOC: ED 21:04
DX: S30.0XXA Contusion of lower back and pelvis, initial encounter (principal); M54.6 Pain in thoracic spine; Z88.4 Allergy status to anesthetic agent; Z79.899 Other long term (current) drug therapy; Z79.4 Long term (current) use of insulin; Z87.891 Personal history of nicotine dependence; W18.39XA Other fall on same level, initial encounter; Y93.89 Activity, other specified; Y92.89 Other specified places as the place of occurrence of the external cause; Y99.8 Other external cause status

== ENCOUNTER 2020-10-18 10:41 | Emergency (ER) | payer OTHER ==
[~2020-10-18] VITALS: Wt 83.9 kg
[2020-10-18 10:49] VITALS: BP 153/86
[2020-10-18] MEDS ORDERED: TYLENOL325 M1 PO (11:34)
[2020-10-18] MEDS ORDERED: NAPROXEN250 MG PO (11:34)
== END 2020-10-18 11:45 | disposition home or self-care (01) ==
LOC: ED 10:41
DX: J02.9 Acute pharyngitis, unspecified (principal); J44.9 Chronic obstructive pulmonary disease, unspecified; I25.10 Atherosclerotic heart disease of native coronary artery without angina pectoris; K21.9 Gastro-esophageal reflux disease without esophagitis; E03.9 Hypothyroidism, unspecified; I25.2 Old myocardial infarction; E78.00 Pure hypercholesterolemia, unspecified; Z20.822 Contact with and (suspected) exposure to COVID-19; Z88.8 Allergy status to other drugs, medicaments and biological substances; Z79.82 Long term (current) use of aspirin; Z79.899 Other long term (current) drug therapy; Z79.2 Long term (current) use of antibiotics; Z95.818 Presence of other cardiac implants and grafts; Z98.890 Other specified postprocedural states; Z87.891 Personal history of nicotine dependence

== ENCOUNTER → 2021-03-17 | Outpatient (CLI) | payer OTHER ==
[~2021-03-17] MED LIST changes: +NAPROXEN250 MG PO; +TYLENOL325 M1 PO
[2021-03-17 10:35] LABS: BASO # 0.1 10*3/uL (0.0-0.1); BASO % 0.7 % (0.0-1.0); EOS # 0.3 10*3/uL (0.0-0.4); HEMATOCRIT 44.2 % (42.0-52.0); LYMPH # 4.1 10*3/uL (1.3-4.4); LYMPH % 29.9 % (27.0-41.0); MEAN CELL VOLUME 93.4 fl (80.0-94.0); MEAN CORPUSCULAR HGB 31.1 pg (27.0-31.0); MEAN CORPUSCULAR HGB CONC 33.3 g/dl (33.0-37.0); MEAN PLATELET VOLUME 8.8 fl (9.6-12.3); MONO # 0.8 10*3/uL (0.1-1.0); MONO % 5.8 % (3.0-9.0); NEUT # 8.4 10*3/uL (2.3-7.9); NEUT % 60.8 % (47.0-73.0); PLATELET COUNT AUTOMATED 304 10*3/uL (130-400); RED BLOOD COUNT 4.73 10*6/uL (4.50-5.90); RED CELL DISTRI WIDTH 13.6 % (0-14.5); WHITE BLOOD COUNT 13.7 10*3/uL (4.8-10.8)
[2021-03-17 10:51] LABS: ALBUMIN 4.1 gm/dl (3.1-4.5); ALKALINE PHOSPHATASE 140 U/L (45-117); BUN 7 mg/dl (7-24); CHLORIDE 106 mmol/L (98-107); CHOLESTEROL 224 mg/dL (<200); CPK 52 U/L (39-308); CREATININE 0.78 mg/dL (0.70-1.30); FREE T4 1.09 ng/dl (0.76-1.46); LDL CHOLESTEROL 127 mg/dL (9-159); POTASSIUM 4.3 mmol/L (3.5-5.1); SGOT/AST 31 IU/L (3-35); SGPT/ALT 56 U/L (12-78); SODIUM 137 mmol/L (136-145); TOTAL PROTEIN 7.7 gm/dL (6.4-8.2); TRIGLYCERIDES 311 mg/dl (<150)
[2021-03-17 11:12] LABS: VITAMIN D, 25-HYDROXY 52.8 ng/mL (30-100)
== END | disposition home or self-care (01) ==
LOC: LAB 10:19
PROVIDERS: ATTEND Internal Medicine
DX: Z00.00 Encounter for general adult medical examination without abnormal findings (principal); I10 Essential (primary) hypertension; E78.2 Mixed hyperlipidemia; E03.9 Hypothyroidism, unspecified; E11.9 Type 2 diabetes mellitus without complications; E55.9 Vitamin D deficiency, unspecified

== ENCOUNTER 2021-04-20 22:34 | Emergency (ER) | payer OTHER ==
[~2021-04-20] VITALS: Wt 81.2 kg
[2021-04-20 23:00] VITALS: BP 128/76
== END 2021-04-20 22:45 | disposition left against medical advice (07) ==
LOC: ED 22:34
DX: R07.89 Other chest pain (principal); M79.605 Pain in left leg; R51.9 Headache, unspecified; Z53.21 Procedure and treatment not carried out due to patient leaving prior to being seen by health care provider; W19.XXXA Unspecified fall, initial encounter; Y93.89 Activity, other specified; Y92.89 Other specified places as the place of occurrence of the external cause; Y99.8 Other external cause status

== ENCOUNTER 2021-08-11 11:43 | Emergency (ER) | payer OTHER ==
[~2021-08-11] VITALS: Ht 154.9 cm; Wt 77.6 kg
[2021-08-11 12:06] VITALS: BP 160/82
== END 2021-08-11 14:45 | disposition left against medical advice (07) ==
LOC: ED 11:43
DX: Z53.21 Procedure and treatment not carried out due to patient leaving prior to being seen by health care provider (principal)

== ENCOUNTER → 2022-01-02 | Outpatient (CLI) | payer OTHER ==
[~2022-01-02] MED LIST changes: +METFORMIN HYDR500 MG PO; +NITROSTAT0.4 MG SL; +NORVASC2.5 MG PO; +SYMB80 INH
== END | disposition home or self-care (01) ==
LOC: CARD 01:00
PROVIDERS: ATTEND Internal Medicine
DX: I11.9 Hypertensive heart disease without heart failure (principal); I25.10 Atherosclerotic heart disease of native coronary artery without angina pectoris

== ENCOUNTER → 2022-03-11 | Outpatient (CLI) | payer OTHER ==
[2022-03-11 15:07] LABS: BASO # 0.1 10*3/uL (0.0-0.1); BASO % 0.5 % (0.0-1.0); EOS # 0.2 10*3/uL (0.0-0.4); EOS % 2.2 % (1.0-4.0); HEMATOCRIT 38.1 % (42.0-52.0); LYMPH # 3.4 10*3/uL (1.3-4.4); LYMPH % 32.9 % (27.0-41.0); MEAN CELL VOLUME 90.1 fl (80.0-94.0); MEAN CORPUSCULAR HGB 30.7 pg (27.0-31.0); MEAN CORPUSCULAR HGB CONC 34.1 g/dl (33.0-37.0); MEAN PLATELET VOLUME 8.7 fl (9.6-12.3); MONO # 0.6 10*3/uL (0.1-1.0); MONO % 5.9 % (3.0-9.0); NEUT % 57.9 % (47.0-73.0); PLATELET COUNT AUTOMATED 252 10*3/uL (130-400); RED BLOOD COUNT 4.23 10*6/uL (4.50-5.90); RED CELL DISTRI WIDTH 13.7 % (0-14.5); WHITE BLOOD COUNT 10.4 10*3/uL (4.8-10.8)
[2022-03-11 15:23] LABS: ALKALINE PHOSPHATASE 207 U/L (45-117); BUN 7 mg/dl (7-24); CHLORIDE 105 mmol/L (98-107); CHOLESTEROL 165 mg/dL (<200); CPK 121 U/L (39-308); CREATININE 0.77 mg/dL (0.70-1.30); LDL CHOLESTEROL 65 mg/dL (9-159); POTASSIUM 3.8 mmol/L (3.5-5.1); SGOT/AST 133 IU/L (3-35); SGPT/ALT 201 U/L (12-78); SODIUM 137 mmol/L (136-145); T3 UPTAKE 34 % (31-39); TOTAL PROTEIN 7.2 gm/dL (6.4-8.2); TRIGLYCERIDES 217 mg/dl (<150)
[2022-03-11 15:24] LABS: FREE T4 1.05 ng/dl (0.76-1.46)
[2022-03-11 16:38] LABS: VITAMIN D, 25-HYDROXY 57.1 ng/mL (30-100)
== END | disposition home or self-care (01) ==
LOC: LAB 14:47
PROVIDERS: ATTEND Internal Medicine
DX: Z12.5 Encounter for screening for malignant neoplasm of prostate (principal); I10 Essential (primary) hypertension; E03.9 Hypothyroidism, unspecified; E11.9 Type 2 diabetes mellitus without complications; D51.9 Vitamin B12 deficiency anemia, unspecified; E55.9 Vitamin D deficiency, unspecified; R74.8 Abnormal levels of other serum enzymes

== ENCOUNTER → 2022-04-08 | Outpatient (CLI) | payer OTHER | END | disposition home or self-care (01) | LOC: CARD 04-02 12:00 | PROVIDERS: ATTEND Internal Medicine | DX: I11.9 Hypertensive heart disease without heart failure (principal); I25.10 Atherosclerotic heart disease of native coronary artery without angina pectoris ==

== ENCOUNTER 2022-06-18 13:57 | Emergency (ER) | payer OTHER ==
[~2022-06-18] VITALS: Wt 80.7 kg
[2022-06-18 14:35] VITALS: BP 130/63
[2022-06-18 15:58] LABS: BASO % 0.3 % (0.0-1.0); HEMATOCRIT 37.7 % (42.0-52.0); LYMPH # 0.7 10*3/uL (1.3-4.4); LYMPH % 6.2 % (27.0-41.0); MEAN CELL VOLUME 94.3 fl (80.0-94.0); MEAN CORPUSCULAR HGB 31.8 pg (27.0-31.0); MEAN CORPUSCULAR HGB CONC 33.7 g/dl (33.0-37.0); MEAN PLATELET VOLUME 9.1 fl (9.6-12.3); MONO # 0.7 10*3/uL (0.1-1.0); NEUT # 10.1 10*3/uL (2.3-7.9); NEUT % 86.6 % (47.0-73.0); PLATELET COUNT AUTOMATED 218 10*3/uL (130-400); RED CELL DISTRI WIDTH 14.1 % (0-14.5); WHITE BLOOD COUNT 11.7 10*3/uL (4.8-10.8)
[2022-06-18 16:09] LABS: ACT PARTIAL THROMBO TIME 35.6 SECONDS (20.0-32.1)
[2022-06-18 16:20] LABS: ALKALINE PHOSPHATASE 196 U/L (45-117); BUN 12 mg/dl (7-24); CHLORIDE 96 mmol/L (98-107); CREATININE 0.92 mg/dL (0.70-1.30); LIPASE 44 U/L (73-393); POTASSIUM 3.6 mmol/L (3.5-5.1); SGOT/AST 41 IU/L (3-35); SGPT/ALT 53 U/L (12-78); SODIUM 132 mmol/L (136-145); TOTAL PROTEIN 7.9 gm/dL (6.4-8.2)
== END 2022-06-18 18:00 | disposition left against medical advice (07) ==
LOC: ED 13:57
PROVIDERS: Emergency Medicine
DX: R05.9 Cough, unspecified (principal); Z20.822 Contact with and (suspected) exposure to COVID-19; R09.81 Nasal congestion; Z88.8 Allergy status to other drugs, medicaments and biological substances; Z79.899 Other long term (current) drug therapy; Z79.82 Long term (current) use of aspirin; Z87.891 Personal history of nicotine dependence; Z98.890 Other specified postprocedural states

== ENCOUNTER → 2022-12-21 | Day surgery (SDC) | payer OTHER ==
[~2022-12-21] VITALS: Ht 154.9 cm; Wt 81.2 kg
[2022-12-21 07:46] VITALS: BP 106/70
[2022-12-21 08:40] VITALS: BP 83/43
[2022-12-21 08:55] VITALS: BP 96/49
[2022-12-21 09:04] VITALS: BP 108/60
== END | disposition home or self-care (01) ==
LOC: SDC 12-17 09:30
PROVIDERS: ATTEND Surgery
DX: R19.5 Other fecal abnormalities (principal); K63.5 Polyp of colon; K57.30 Diverticulosis of large intestine without perforation or abscess without bleeding; Z86.010 Personal history of colon polyps; I10 Essential (primary) hypertension; K21.9 Gastro-esophageal reflux disease without esophagitis; I25.2 Old myocardial infarction; I25.10 Atherosclerotic heart disease of native coronary artery without angina pectoris; E78.00 Pure hypercholesterolemia, unspecified; E03.9 Hypothyroidism, unspecified; J44.9 Chronic obstructive pulmonary disease, unspecified; Z87.891 Personal history of nicotine dependence; E11.9 Type 2 diabetes mellitus without complications; Z79.899 Other long term (current) drug therapy

== ENCOUNTER → 2023-04-13 | Outpatient (CLI) | payer OTHER ==
[2023-04-13 13:31] LABS: BASO # 0.1 10*3/uL (0.0-0.1); BASO % 0.5 % (0.0-1.0); EOS # 0.3 10*3/uL (0.0-0.4); EOS % 2.1 % (1.0-4.0); HEMATOCRIT 39.1 % (42.0-52.0); LYMPH # 3.9 10*3/uL (1.3-4.4); LYMPH % 31.9 % (27.0-41.0); MEAN CELL VOLUME 93.3 fl (80.0-94.0); MEAN CORPUSCULAR HGB 31.3 pg (27.0-31.0); MEAN CORPUSCULAR HGB CONC 33.5 g/dl (33.0-37.0); MEAN PLATELET VOLUME 8.8 fl (9.6-12.3); MONO # 0.7 10*3/uL (0.1-1.0); MONO % 5.9 % (3.0-9.0); NEUT # 7.3 10*3/uL (2.3-7.9); NEUT % 59.1 % (47.0-73.0); PLATELET COUNT AUTOMATED 274 10*3/uL (130-400); RED BLOOD COUNT 4.19 10*6/uL (4.50-5.90); RED CELL DISTRI WIDTH 13.6 % (0-14.5); WHITE BLOOD COUNT 12.3 10*3/uL (4.8-10.8)
[2023-04-13 13:56] LABS: ALKALINE PHOSPHATASE 140 U/L (46-116); BUN 9 mg/dl (9-23); CHLORIDE 101 mmol/L (98-107); CHOLESTEROL 197 mg/dL (<200); CPK 53 U/L (34-171); FREE T4 1.13 ng/dl (0.89-1.76); LDL CHOLESTEROL 103 mg/dL (9-159); SGPT/ALT 70 U/L (10-49); TRIGLYCERIDES 258 mg/dl (<150)
[2023-04-13 14:22] LABS: VITAMIN D, 25-HYDROXY 59.3 ng/mL (30-100)
== END | disposition home or self-care (01) ==
LOC: LAB 13:17
PROVIDERS: ATTEND Internal Medicine
DX: Z12.5 Encounter for screening for malignant neoplasm of prostate (principal); Z13.0 Encounter for screening for diseases of the blood and blood-forming organs and certain disorders involving the immune mechanism; Z13.21 Encounter for screening for nutritional disorder; Z13.1 Encounter for screening for diabetes mellitus; Z13.220 Encounter for screening for lipoid disorders; Z13.228 Encounter for screening for other metabolic disorders; Z13.29 Encounter for screening for other suspected endocrine disorder; Z13.6 Encounter for screening for cardiovascular disorders; Z13.89 Encounter for screening for other disorder; Z13.9 Encounter for screening, unspecified; I10 Essential (primary) hypertension; E11.9 Type 2 diabetes mellitus without complications; D51.9 Vitamin B12 deficiency anemia, unspecified; J44.1 Chronic obstructive pulmonary disease with (acute) exacerbation

== ENCOUNTER → 2023-08-04 | Outpatient (CLI) | payer OTHER | END | disposition home or self-care (01) | LOC: CT 11:00 | PROVIDERS: ATTEND Internal Medicine | DX: I51.7 Cardiomegaly (principal); Z87.891 Personal history of nicotine dependence ==

== ENCOUNTER → 2024-05-26 | Outpatient (CLI) | payer OTHER | END | disposition home or self-care (01) | LOC: RAD 10:51 | PROVIDERS: ATTEND Internal Medicine | DX: R05.8 Other specified cough (principal); J43.9 Emphysema, unspecified; I10 Essential (primary) hypertension; E11.9 Type 2 diabetes mellitus without complications; R06.02 Shortness of breath; Z87.891 Personal history of nicotine dependence ==

== ENCOUNTER → 2024-08-11 | Outpatient (CLI) | payer OTHER | END | disposition home or self-care (01) | LOC: US 08:43 | PROVIDERS: ATTEND Internal Medicine | DX: Z13.6 Encounter for screening for cardiovascular disorders (principal); Z87.891 Personal history of nicotine dependence ==

== ENCOUNTER → 2024-09-26 | Outpatient (CLI) | payer OTHER | END | disposition home or self-care (01) | LOC: CT 08:35 | PROVIDERS: ATTEND Internal Medicine | DX: Z12.2 Encounter for screening for malignant neoplasm of respiratory organs (principal); J43.9 Emphysema, unspecified; I25.10 Atherosclerotic heart disease of native coronary artery without angina pectoris; R91.1 Solitary pulmonary nodule; J84.10 Pulmonary fibrosis, unspecified; Z87.891 Personal history of nicotine dependence ==